=== PATIENT | female | born 1985 | race Caucasian/White ===

== ENCOUNTER 2024-03-19 16:55 | Emergency (ER) | payer OTHER, SELFPAY ==
[2024-03-19 17:14] VITALS: BP 178/95; PULSE 84; RESP 16; TEMP 36.6; O2SAT 97
[2024-03-19 17:31] VITALS: BP 134/75; PULSE 82; RESP 16; TEMP 36.6; O2SAT 97
--- NOTE | 2024-03-19 17:59 | ED.GENADULT ---
HPI - General Adult General Chief complaint: Unspecified Stated complaint: I CANT GET NO SLEEP Time Seen by Provider: 03/19/24 17:04 Source: patient Mode of arrival: ambulatory Limitations: no limitations History of Present Illness HPI narrative: this is a 38-year-old female who presents to the ED for chief complaint of insomnia ongoing for the past several months. States that she is worried she will not be able to keep her job because of this insomnia. states that she has had a full workup by her PCP and has tried multiple sleep medications with PCP with no luck. States she has tried [id number] such as melatonin and antihistamines with no benefit. Reports that she will stay up for multiple days and then eventually when she is able to sleep she will sleep through her alarm. States that she has lost jobs due to this problem. Denies any further complaint Related Data Home Medications Medication Instructions Recorded Confirmed escitalopram oxalate 20 mg tablet mg 03/19/24 hydroxyzine HCl 25 mg tablet mg 03/19/24 trazodone 50 mg tablet mg 03/19/24 Allergies Allergy/AdvReac Type Severity Reaction Status Date / Time amoxicillin Allergy Unknown Unknown Verified 03/19/24 16:56 Review of Systems Review of Systems: All systems as dictated in HPI Exam Narrative: GENERAL: Well-appearing, well-nourished, and in no acute distress. HEAD: Normocephalic, atraumatic. EYES: PERRLA and EOMI. ENT: Nares clear, no rhinorrhea or epistaxis. Mucous membranes moist. Oropharynx without tonsillar hypertrophy exudate or other lesions. NECK: Supple. No adenopathy or masses. CHEST: No respiratory distress. Clear to auscultation. No wheezes rales or rhonchi HEART: Regular rate and rhythm. No murmur heard. Normal peripheral pulses. ABDOMEN: Soft, nontender, nondistended, normal active bowel sounds. MSK: Normal range of motion. No edema. SKIN: Warm, dry, no rash. NEURO: Alert and oriented x4. No focal deficits. PSYCH: tearful. Anxious. No SI or HI. Course Vital Signs Vital signs: Vital Signs Temperature 97.9 F 03/19/24 17:14 Pulse Rate 84 03/19/24 17:14 Respiratory Rate 16 03/19/24 17:14 Blood Pressure 178/95 H 03/19/24 17:14 Pulse Oximetry 97 03/19/24 17:14 Oxygen Delivery Room Air 03/19/24 17:14 Temperature 97.9 F 03/19/24 18:01 Pulse Rate 80 03/19/24 18:01 Respiratory Rate 16 03/19/24 18:01 Blood Pressure 132/91 H 03/19/24 18:01 Pulse Oximetry 97 03/19/24 18:01 Oxygen Delivery Room Air 03/19/24 17:14 Medical Decision Making MDM Narrative Medical decision making narrative: This is a 38-year-old female who presents to the ED for insomnia. Vitals are normal. Exam is benign overall. Pt has exhausted multiple medication options with PCP. Discussed with patient that I would not be able to offer any different medications for sleep aids today. She is looking for a psych referral so information given to the [facility]. Pt will be discharged in stable condition. Return precautions given and supportive measures discussed. Pt is understanding and agreeable with plan for discharge and follow-up with PCP. Vital Signs Vital Signs: Vital Signs Temperature 97.9 F 03/19/24 17:14 Pulse Rate 84 03/19/24 17:14 Respiratory Rate 16 03/19/24 17:14 Blood Pressure 178/95 H 03/19/24 17:14 Pulse Oximetry 97 03/19/24 17:14 Oxygen Delivery Room Air 03/19/24 17:14 Temperature 97.9 F 03/19/24 18:01 Pulse Rate 80 03/19/24 18:01 Respiratory Rate 16 03/19/24 18:01 Blood Pressure 132/91 H 03/19/24 18:01 Pulse Oximetry 97 03/19/24 18:01 Oxygen Delivery Room Air 03/19/24 17:14 Discharge Plan Discharge Clinical Impression: Insomnia Patient Disposition: Home, Self-Care Condition: Stable Instructions: Antibiotic Form, Insomnia (ED) Additional Instructions: [facility] Psychiatry: Shahida Villarreal [id number]
[2024-03-19 18:01] VITALS: BP 132/91; PULSE 80; RESP 16; TEMP 36.6; O2SAT 97
== END 2024-03-19 18:23 | disposition home or self-care (01) ==
LOC: ANHED 18:06
PROVIDERS: Emergency Provider Physician Assistant
DX: G47.00 Insomnia, unspecified (principal); Z79.899 Other long term (current) drug therapy
CPT/HCPCS: 99281